=== PATIENT | female | born 1960 | race Caucasian/White ===

== ENCOUNTER 2021-04-16 11:34 | Emergency (ER) | payer MEDICAID ==
[~2021-04-16] VITALS: Ht 160 cm; Wt 68.0 kg
[2021-04-16 11:53] VITALS: BP 162/99
--- NOTE | 2021-04-16 12:09 | NUR ---
PT C/O R FOOT PAIN AND SWELLING X5 DAYS S/P DOG BITE. PT IS A&OX4 AND VITAL SIGNS WITHIN NORMAL LIMITS.
[2021-04-16] MEDS ORDERED: AMOX-430 PO (12:30)
[2021-04-16] MEDS ORDERED: SULF1TAB48 PO (12:53)
--- NOTE | 2021-04-16 13:22 | NUR ---
Patient discharged to home in stable condition. RX. Written and verbal after care instructions given. Patient verbalizes understanding of instructIon.PT ambulatory with a steady gait
== END 2021-04-16 13:58 | disposition home or self-care (01) ==
LOC: ER 11:38
DX: S91.351A Open bite, right foot, initial encounter (principal); W54.0XXA Bitten by dog, initial encounter; Y93.89 Activity, other specified; Y92.89 Other specified places as the place of occurrence of the external cause; Y99.8 Other external cause status